=== PATIENT | male | born 1960 | race Two or more races ===

== ENCOUNTER 2017-08-14 23:12 | Inpatient (IN) | payer OTHER ==
[~2017-08-14] VITALS: Ht 177.8 cm; Wt 83.9 kg
[2017-08-14] MEDS ORDERED: HYDROMORPHONE INJ 2 MG/ML DISP.SYRIN ONE (23:42)
[2017-08-14] MEDS ORDERED: ONDANSETRON HCL/PF 4 MG/2 ML VIAL ONE (23:43)
[2017-08-15] MEDS ORDERED: ONDANSETRON HCL/PF 4 MG/2 ML VIAL IM ONE
[2017-08-15] MEDS ORDERED: HYDROMORPHONE INJ 2 MG/ML DISP.SYRIN ONE ×2 (00:43→01:42)
[2017-08-15] MEDS ORDERED: HYDROMORPHONE 1 MG/1 ML DISP.SYRIN IM ONE ×2 (01:00)
[2017-08-15] MEDS ORDERED: ONDANSETRON HCL/PF 4 MG/2 ML VIAL IVP PRN (01:30)
[2017-08-15] MEDS ORDERED: MAGNESIUM HYDROXIDE 30 ML UDC PO PRN (01:30)
[2017-08-15] MEDS ORDERED: MAG HYDROX/AL HYDROX/SIMETH 30 ML UDC PO PRN (01:30)
[2017-08-15] MEDS ORDERED: ZOLPIDEM TARTRATE 5 MG TABLET PO PRN (01:30)
[2017-08-15] MEDS ORDERED: ACETAMINOPHEN 325 MG TABLET PO PRN (01:30)
[2017-08-15 01:45] LABS: CALCIUM, SERUM 8.7 mg/dL (8.5-10.1); CREATININE 0.6 mg/dL (0.6-1.3); POTASSIUM 3.6 mmol/L (3.5-5.1)
[2017-08-15] MEDS: HYDROMORPHONE INJ 2 MG/ML DISP.SYRIN IV PRN ×8 (01:45→22:56)
[2017-08-15 01:49] LABS: BASOPHILS % (AUTO) 0.6 % (0.0-2.0); EOSINOPHILS # (AUTO) 0.1 /CMM (0.0-0.7); EOSINOPHILS % (AUTO) 1.5 % (0.0-6.0); HEMATOCRIT 42 % (39-51); HEMOGLOBIN 14.5 g/dL (13.5-17.5); LYMPHOCYTES # (AUTO) 1.3 /CMM (0.8-4.8); LYMPHOCYTES % (AUTO) 21.1 % (20.0-44.0); MEAN CORPUSCULAR HEMOGLOBIN 30 PG (26.0-33.0); MEAN CORPUSCULAR HGB CONC 35 g/dl (31.0-36.0); MEAN CORPUSCULAR VOLUME 87 fL (80-96); MONOCYTES # (AUTO) 0.4 /CMM (0.1-1.30); NEUTROPHILS # (AUTO) 4.4 /CMM (1.8-8.9); NEUTROPHILS % (AUTO) 69.8 % (43.0-81.0); PLATELET COUNT (AUTO) 232 /CMM (150-450); RDW COEFFICIENT OF VARIATION 12.6 (11.5-15.0); RED BLOOD CELL COUNT(AUTO) 4.83 MIL/uL (4.5-6.0); WHITE BLOOD COUNT (AUTO) 6.3 K/uL (4.3-11.0)
[2017-08-15 01:51] LABS: ALBUMIN 3.6 g/dL (3.4-5.0); BILIRUBIN,DIRECT 0.1 mg/dL (0.0-0.2); BILIRUBIN,TOTAL 0.3 mg/dL (0.2-1.0); TOTAL PROTEIN, SERUM 6.7 g/dL (6.4-8.2)
[2017-08-15 02:00] VITALS: BP 131/69
[2017-08-15 02:02] LABS: INR 0.94 (0.87-1.13)
[2017-08-15] MEDS: HYDROCODONE/APAP 10/325MG 1 EA TABLET PO PRN ×4 (03:17→21:53)
[2017-08-15] MEDS ORDERED: DUTA0.5C PO (04:11)
[2017-08-15] MEDS ORDERED: TAMS0.4C34 PO (04:11)
[2017-08-15 08:00] VITALS: BP 115/68
[2017-08-15] MEDS ORDERED: PANTOPRAZOLE 40 MG TABLET.DR PO SCH (08:00)
[2017-08-15] MEDS ORDERED: DEXAMETHASONE SOD PHOSPHATE 10 MG/ML VIAL IV STA (12:06)
[2017-08-15] MEDS ORDERED: KETOROLAC TROMETHAMINE INJ 30 MG/ML VIAL IV ONE (12:30)
[2017-08-15 16:00] VITALS: BP 121/60
[2017-08-15 19:56] VITALS: BP 129/78
[2017-08-15 20:00] VITALS: BP 129/78
[2017-08-16 04:10] VITALS: BP 127/71
[2017-08-16] MEDS: HYDROMORPHONE INJ 2 MG/ML DISP.SYRIN IV PRN (04:12)
[2017-08-16] MEDS: HYDROCODONE/APAP 10/325MG 1 EA TABLET PO PRN (06:10)
== END 2017-08-16 06:40 | disposition home or self-care (01) | DRG 566 ==
LOC: ER 23:14 → MEDSG2 08-15 01:34
PROVIDERS: ADMIT Nurse Practitioner Acute Care; ATTEND Nurse Practitioner Acute Care
DX: D36.17 Benign neoplasm of peripheral nerves and autonomic nervous system of trunk, unspecified (principal); N40.0 Benign prostatic hyperplasia without lower urinary tract symptoms
CPT/HCPCS: 36415; 80048-TC; 80076-TC; 85025-TC; 85730-TC; 87081-TC; A4606; J1100; J1170; J1885; J2405; Z7610